=== PATIENT | male | born 1985 | race Caucasian/White ===

== ENCOUNTER → 2016-06-26 | Outpatient (CLI) | payer MEDICAID ==
--- NOTE | 2016-06-29 08:23 | XR ---
EXAMINATION TYPE: XR lumbosacral spine min 4V DATE OF EXAM: 06/26/2016 11:55 AM CLINICAL HISTORY: pain COMPARISON: NONE TECHNIQUE: Frontal, lateral, and oblique images of the lumbar spine are obtained. FINDINGS: There are 5 lumbar type vertebral bodies identified. The lumbar spine shows satisfactory alignment without evidence of acute fracture or dislocation. Vertebral body heights are within normal limits. Disc spaces are well preserved. The overlying soft tissue appears unremarkable. IMPRESSION: No acute fracture or dislocation is seen in the lumbar spine. ICD 10 NO FRACTURE, INITIAL EVALUATION
== END | disposition home or self-care (01) ==
LOC: RADXRYALE 11:31
PROVIDERS: ATTEND Physician Assistant Medical
DX: M54.41 Lumbago with sciatica, right side (principal)
CPT/HCPCS: 72110

== ENCOUNTER 2019-09-25 21:39 | Emergency (ER) | payer MEDICAID ==
[2019-09-25] MEDS ORDERED: SULFAMETH-TMP DS STARTER PACK 2 TAB BTL PO STA (21:54)
[2019-09-25] MEDS ORDERED: SULFAMETHOX-TMP 800-160MG 1 EACH TAB PO STA (21:54)
--- NOTE | 2019-09-25 23:43 | ED ---
General Adult HPI - General Chief complaint: Skin/Abscess/Foreign Body Stated complaint: Groin Pain Time Seen by Provider: 09/25/19 21:51 Source: patient, RN notes reviewed, old records reviewed Mode of arrival: ambulatory Limitations: no limitations - History of Present Illness Initial comments: 34-year-old male patient presents to ED for chief complaint of possible abscess left groin. Patient was having ongoing for approximately 3-4 days but worse today. Denies any testicular pain or tenderness. Denies any other complaints. Patient reports that he has an ALLERGY to penicillins. Systemic: Pt denies fatigue, fever/chills, rash. Pt denies weakness, night sweats, weight loss. Neuro: Pt denies headache, visual disturbances, syncope or pre-syncope. HEENT: Pt denies ocular discharge or irritation, otalgia, rhinorrhea, pharyngitis or notable lymphadenopathy. Cardiopulmonary: Pt denies chest pain, SOB, heart palpitations, dyspnea on exertion. Abdominal/GI: Pt denies abdominal pain, n/v/d. : Pt denies dysuria, burning w/ urination, frequency/urgency. Denies new onset urinary or bowel incontinence. MSK: Pt denies myalgia, loss of strength or function in extremities. Neuro: Pt denies new onset weakness, paresthesias. - Related Data Previous Rx's Medication Instructions Recorded Clindamycin [Cleocin] 450 mg PO Q8HR 7 Days #63 cap 09/25/19 Allergies Allergy/AdvReac Type Severity Reaction Status Date / Time amoxicillin Allergy Rash/Hives Verified 09/25/19 21:42 Penicillins Allergy Rash/Hives Verified 09/25/19 21:42 Sulfa (Sulfonamide Allergy Rash/Hives Verified 09/25/19 23:46 Antibiotics) Review of Systems ROS Statement: Those systems with pertinent positive or pertinent negative responses have been documented in the HPI. ROS Other: All systems not noted in ROS Statement are negative. Past Medical History Past Medical History: No Reported History History of Any Multi-Drug Resistant Organisms: None Reported Past Surgical History: Adenoidectomy, Cholecystectomy, Hernia Repair, Tonsillectomy Past Psychological History: No Psychological Hx Reported Smoking Status: Never smoker Past Alcohol Use History: None Reported Past Drug Use History: None Reported General Exam - General Exam Comments Initial Comments: Constitutional: NAD, AOX3, Pt has pleasant affect. HEENT: NC/AT, trachea midline, neck supple, no lymphadenopathy. Posterior pharynx non erythematous, without exudates. External ears appear normal, without discharge. Mucous membranes moist. Eyes PERRLA, EOM intact. There is no scleral icterus. No pallor noted. Cardiopulmonary: RRR, no murmurs, rubs or gallops, no JVD noted. Lungs CTAB in anterior and posterior henson. No peripheral edema. Abdominal exam: Abdomen soft and non-distended. Abdomen non-tender to palpation in all 4 quadrants. Bowel sounds active in LLQ. No hepatosplenomegaly. No ecchymosis Neuro: CN II-XII grossly intact. No nuchal rigidity. No raccon eyes, no mathis sign, no hemotympanum. No cervical spinal tenderness. MSK: 3 x 3 cm abscess left inguinal region. No tenderness or involvement to scrotum or penis. Incision and drainage to perform posterior culture was obtained. Limitations: no limitations Course Vital Signs 09/25/19 09/25/19 09/25/19 21:43 22:24 23:51 Temperature 98.4 F 99.2 F 98.3 F Pulse Rate 99 94 88 Respiratory 18 18 20 Rate Blood Pressure 134/82 156/89 145/72 O2 Sat by Pulse 98 97 99 Oximetry Procedures - Incision & Drainage Consent Obtained: verbal consent Indication: left inguinal abscess Size (cm): 3 I&D Cleaning Method: Chloroprep Sterile Field Used?: Yes Scalpel Used: #11 I&D Drainage Obtained: Pus Patient Tolerated Procedure: well Medical Decision Making - Medical Decision Making 34-year-old male patient presents to ED for chief complaint of possible abscess left groin. Patient was having ongoing for approximately 3-4 days but worse today. Denies any testicular pain or tenderness. Denies any other complaints. Patient reports that he has an ALLERGY to penicillins. Pt VSS, afebrile. Physical exam displayed: 3 x 3 cm abscess left inguinal region. No tenderness or involvement to scrotum or penis. Incision and drainage to perform posterior culture was obtained. Patient initially stated he only had ALLERGIES to amoxicillin penicillins therefore he is initiated on a dose of Bactrim. Patient then called his mom said that he had an ALLERGY to sulfa so patient will be prescribed clindamycin will follow-up with primary care provider and will return to ER if condition worsens. Case discussed with Dr. Card. Disposition Clinical Impression: Abscess Disposition: HOME SELF-CARE Condition: Stable Instructions (If sedation given, give patient instructions): Abscess (ED), Warm Compress or Soak (ED) Additional Instructions: Take clindamycin as directed. Follow up with primary care provider tomorrow. Return to ER if condition worsens in any way. Prescriptions: Clindamycin [Cleocin] 450 mg PO Q8HR 7 Days #63 cap Is patient prescribed a controlled substance at d/c from ED?: No Referrals: None,Stated [Primary Care Provider] - 1-2 days
[2019-09-25 23:55] VITALS: BP 145/72; PULSE 88; RESP 20; TEMP 98.3
== END 2019-09-25 23:56 | disposition home or self-care (01) ==
LOC: EC 21:39 → SUPCPDRO 21:39 → EC 23:56
DX: L02.214 Cutaneous abscess of groin (principal); Z88.0 Allergy status to penicillin; Z88.2 Allergy status to sulfonamides; Z90.49 Acquired absence of other specified parts of digestive tract
CPT/HCPCS: 10060; 87070; 87205; 99284

== ENCOUNTER 2019-11-13 15:51 | Emergency (ER) | payer MEDICAID ==
[2019-11-13 15:59] VITALS: RESP 18; TEMP 98.7
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
[2019-11-13 17:31] VITALS: BP 131/71; PULSE 85
== END 2019-11-13 17:38 | disposition home or self-care (01) ==
LOC: EC 15:51
DX: T70.0XXA Otitic barotrauma, initial encounter (principal); S00.83XA Contusion of other part of head, initial encounter; Z88.0 Allergy status to penicillin; Z88.2 Allergy status to sulfonamides; Y04.0XXA Assault by unarmed brawl or fight, initial encounter
CPT/HCPCS: 70450; 70486; 72125; 99284

== ENCOUNTER 2021-03-30 09:46 | Emergency (ER) | payer MEDICAID, OTHER ==
[2021-03-30 09:54] VITALS: TEMP 98.6
--- NOTE | 2021-03-30 10:58 | ED ---
General Adult HPI - General Chief complaint: Upper Respiratory Infection Stated complaint: Covid+/BAM Time Seen by Provider: 03/30/21 09:55 Source: patient Mode of arrival: ambulatory Limitations: no limitations - History of Present Illness Initial comments: 35-year-old male presents to the emergency room for a chief complaint of antibody infusion. Patient tested positive for COVID-19 yesterday with symptoms starting the day before. Patient states the clinic he tested positive at told him to come to the emergency room and get antibody infusion. Patient is complaining of body aches and cough. Slight shortness of breath. No chest pain.Patient has no other complaints at this time including chest pain, abdominal pain, nausea or vomiting, headache, or visual changes. - Related Data Home Medications Medication Instructions Recorded Confirmed No Known Home Medications 03/30/21 03/30/21 Allergies Allergy/AdvReac Type Severity Reaction Status Date / Time amoxicillin Allergy Rash/Hives Verified 03/30/21 10:48 Penicillins Allergy Rash/Hives Verified 03/30/21 10:48 Sulfa (Sulfonamide Allergy Rash/Hives Verified 03/30/21 10:48 Antibiotics) Review of Systems ROS Statement: Those systems with pertinent positive or pertinent negative responses have been documented in the HPI. ROS Other: All systems not noted in ROS Statement are negative. Past Medical History Past Medical History: No Reported History History of Any Multi-Drug Resistant Organisms: None Reported Past Surgical History: Adenoidectomy, Cholecystectomy, Hernia Repair, Tonsillectomy Past Psychological History: No Psychological Hx Reported Smoking Status: Never smoker Past Alcohol Use History: None Reported Past Drug Use History: None Reported General Exam Limitations: no limitations General appearance: alert, in no apparent distress Head exam: Present: atraumatic Eye exam: Present: normal appearance, PERRL, EOMI. Absent: scleral icterus, conjunctival injection ENT exam: Present: normal exam, mucous membranes moist Neck exam: Present: normal inspection, full ROM. Absent: tenderness Respiratory exam: Present: normal lung sounds bilaterally. Absent: respiratory distress, wheezes Cardiovascular Exam: Present: regular rate, normal rhythm, normal heart sounds GI/Abdominal exam: Present: soft, normal bowel sounds. Absent: distended, tenderness Neurological exam: Present: alert Course Vital Signs 03/30/21 03/30/21 09:51 09:58 Temperature 98.6 F Pulse Rate 71 Respiratory 18 24 Rate Blood Pressure 130/80 O2 Sat by Pulse 99 Oximetry Medical Decision Making - Medical Decision Making Vitals are stable. Patient is well appearing. No respiratory distress. I did offer chest xr which patient refused. He only wants the antibody infusion. This was ordered for him and he was monitored for an hour. He is stable for outp atient follow up and management. He will follow-up with his doctor. He will return here for any worsening symptoms. Disposition Clinical Impression: COVID-19 Disposition: HOME SELF-CARE Condition: Good Instructions (If sedation given, give patient instructions): Coronavirus Disea se 2019 (COVID-19) Additional Instructions: Take Motrin and Tylenol for fever or body aches. Take [id number] vitamin C, D, and zinc. Follow-up with your doctor. Return to the emergency room for any worsening symptoms such as worsening shortness of breath. Is patient prescribed a controlled substance at d/c from ED?: No Referrals: Shawn Toro MD [REFERRING] - 1-2 days Time of Disposition: 10:57
[2021-03-30] MEDS ORDERED: BAMLANIVIMAB (EUA) 700 MG, ETESEVIMAB (EUA) 1,400 MG in SODIUM CHLORIDE 0.9% 50 ML IVPB ONE (11:30)
[2021-03-30] MEDS ORDERED: SODIUM CHLORIDE 0.9% 50 ML IVPB ONE (11:30)
[2021-03-30 13:03] VITALS: BP 124/82; PULSE 72; RESP 16
== END 2021-03-30 13:01 | disposition home or self-care (01) ==
LOC: EC 09:46
DX: U07.1 COVID-19 (principal); Z88.0 Allergy status to penicillin; Z88.2 Allergy status to sulfonamides; Z90.49 Acquired absence of other specified parts of digestive tract
CPT/HCPCS: 99284; M0245